=== PATIENT | female | born 1985 | race Caucasian/White ===

== ENCOUNTER 2019-07-13 23:03 | Emergency (ER) | payer BC ==
[~2019-07-13] VITALS: Ht 160 cm; Wt 109.9 kg
[2019-07-13 23:07] VITALS: Ht 160 cm; Wt 109.9 kg
[2019-07-13 23:48] LABS: UA SPECIFIC GRAVITY >=1.030 (1.005-1.035); microscopic required? YES; urine erythrocyte NEGATIVE (NEGATIVE)
[2019-07-13 23:54] LABS: BASOPHIL % 0.2 % (0-2); PLATELET COUNT 200 x10^3mcL (130-400); RED CELL DISTRIBUTION WIDTH 14.5 % (11.5-14.5)
[2019-07-14 00:05] LABS: ALBUMIN 3.6 g/dL (3.4-5.0); ALKALINE PHOSPHATASE 48 U/L (46-116); ALT/SGPT 29 U/L (14-59); AST/SGOT 16 U/L (15-37); BILIRUBIN TOTAL 0.3 mg/dL (0.20-1.00); CALCIUM 9.3 mg/dL (8.5-10.1); CARBON DIOXIDE 25.7 mmol/L (21-32); CHLORIDE SERUM 103 mmol/L (98-107); CREATININE SERUM 0.7 mg/dL (0.6-1.0); GFR1 > 60 mL/min; GLUCOSE SERUM 87 mg/dL (74-106); LIPASE 138 IU/L (73-393); POTASSIUM SERUM 3.6 mmol/L (3.5-5.1); SODIUM SERUM 141 mmol/L (136-145); TOTAL PROTEIN, SERUM 7.6 g/dL (6.4-8.2)
[2019-07-14 01:54] VITALS: BP 107/46
== END 2019-07-14 01:54 | disposition home or self-care (01) ==
LOC: ED 23:03
PROVIDERS: Emergency Medicine
DX: R10.13 Epigastric pain (principal); R11.10 Vomiting, unspecified
CPT/HCPCS: J1885; J2405; J7030

== ENCOUNTER 2019-07-29 12:50 | Inpatient (IN) | payer BC ==
[~2019-07-29] VITALS: Ht 152.4 cm; Wt 108.0 kg
[2019-07-29 12:57] VITALS: Ht 152.4 cm; Wt 108.0 kg
[2019-07-29 14:34] LABS: BASOPHIL % 0.1 % (0-2); PLATELET COUNT 237 x10^3mcL (130-400); RED CELL DISTRIBUTION WIDTH 14.3 % (11.5-14.5)
[2019-07-29 14:47] LABS: CALCIUM 8.7 mg/dL (8.5-10.1); CARBON DIOXIDE 25.2 mmol/L (21-32); CHLORIDE SERUM 105 mmol/L (98-107); CREATININE SERUM 0.5 mg/dL (0.6-1.0); GFR1 > 60 mL/min; GLUCOSE SERUM 123 mg/dL (74-106); POTASSIUM SERUM 4.1 mmol/L (3.5-5.1); SODIUM SERUM 142 mmol/L (136-145)
[2019-07-29 14:51] LABS: ALBUMIN 3.7 g/dL (3.4-5.0); ALKALINE PHOSPHATASE 47 U/L (46-116); ALT/SGPT 33 U/L (14-59); AST/SGOT 14 U/L (15-37); BILIRUBIN TOTAL 0.3 mg/dL (0.20-1.00); LIPASE 112 IU/L (73-393); TOTAL PROTEIN, SERUM 7.5 g/dL (6.4-8.2)
[2019-07-29 18:38] LABS: CHOLESTEROL/HDL RATIO 3.9; PHOSPHOROUS 2.6 mg/dL (2.5-4.9)
[2019-07-29 18:43] LABS: microscopic required? NO
[2019-07-29 18:51] LABS: FREE T4 1.15 ng/dL (0.76-1.46); FREE THYROXINE INDEX 3.1 ug/dL (1.4-4.5); T3 TOTAL 1.12 ng/mL; T4(THYROXINE) 9.2 ug/dL (4.7-13.3)
[2019-07-29 18:52] LABS: UA SPECIFIC GRAVITY 1.025 (1.005-1.035); urine erythrocyte NEGATIVE (NEGATIVE)
[2019-07-29 19:08] LABS: AMPHETAMINE QUAL UR NONE DETECTED (See below)
[2019-07-29 19:58] VITALS: BP 130/67
[2019-07-29 21:23] VITALS: BP 114/42
[2019-07-30 05:25] VITALS: BP 97/52
[2019-07-30 06:34] LABS: ALKALINE PHOSPHATASE 41 U/L (46-116); ALT/SGPT 27 U/L (14-59); AST/SGOT 13 U/L (15-37); BILIRUBIN TOTAL 0.34 mg/dL (0.20-1.00); CALCIUM 8.6 mg/dL (8.5-10.1); CARBON DIOXIDE 25.5 mmol/L (21-32); CHLORIDE SERUM 108 mmol/L (98-107); CREATININE SERUM 0.6 mg/dL (0.6-1.0); GFR1 > 60 mL/min; GLUCOSE SERUM 105 mg/dL (74-106); MAGNESIUM 2.2 mg/dL (1.8-2.4); PHOSPHOROUS 3.6 mg/dL (2.5-4.9); POTASSIUM SERUM 3.5 mmol/L (3.5-5.1); SODIUM SERUM 143 mmol/L (136-145); TOTAL PROTEIN, SERUM 6.4 g/dL (6.4-8.2)
[2019-07-30 06:37] LABS: BASOPHIL % 0.2 % (0-2); PLATELET COUNT 209 x10^3mcL (130-400)
[2019-07-30 07:04] LABS: RED CELL DISTRIBUTION WIDTH 14.6 % (11.5-14.5)
[2019-07-30 08:09] VITALS: BP 115/56
[2019-07-30 16:18] VITALS: BP 123/69
[2019-07-30 20:29] VITALS: BP 113/66
[2019-07-31 05:36] VITALS: BP 98/52
[2019-07-31 06:29] LABS: BASOPHIL % 0.3 % (0-2); PLATELET COUNT 213 x10^3mcL (130-400)
[2019-07-31 06:55] LABS: CALCIUM 8.9 mg/dL (8.5-10.1); CARBON DIOXIDE 30.4 mmol/L (21-32); CHLORIDE SERUM 107 mmol/L (98-107); CREATININE SERUM 0.6 mg/dL (0.6-1.0); GFR1 > 60 mL/min; GLUCOSE SERUM 108 mg/dL (74-106); PHOSPHOROUS 3.3 mg/dL (2.5-4.9); POTASSIUM SERUM 3.8 mmol/L (3.5-5.1); SODIUM SERUM 143 mmol/L (136-145)
[2019-07-31 07:04] LABS: RED CELL DISTRIBUTION WIDTH 14.7 % (11.5-14.5)
[2019-07-31 07:30] LABS: BILIRUBIN DIRECT 0.1 mg/dL (0.0-0.2); BILIRUBIN TOTAL 0.33 mg/dL (0.20-1.00); TOTAL PROTEIN, SERUM 6.4 g/dL (6.4-8.2)
[2019-07-31 08:59] VITALS: BP 120/62
[2019-07-31 12:12] VITALS: BP 122/70
[2019-07-31 13:43] VITALS: BP 122/70
[2019-07-31 13:44] VITALS: BP 122/70
[2019-07-31] MEDS ORDERED: NORCO1 TA2 PO (15:20)
[2019-07-31] MEDS ORDERED: ZOF4 PO ×2 (15:20→16:09)
== END 2019-07-31 16:36 | disposition home or self-care (01) | DRG 417 ==
LOC: ED 12:50 → MU 17:39
PROVIDERS: Emergency Medicine; Surgery; ADMIT Student in an Organized Health Care Education/Training Program
PROC: BF131ZZ Fluoroscopy of Gallbladder and Bile Ducts using Low Osmolar Contrast (ICD-10-PCS; 2019-07-30)
PROC: 0FT44ZZ Resection of Gallbladder, Percutaneous Endoscopic Approach (ICD-10-PCS; principal; 2019-07-30 09:00)
DX: K80.20 Calculus of gallbladder without cholecystitis without obstruction (principal); N17.0 Acute kidney failure with tubular necrosis; K76.0 Fatty (change of) liver, not elsewhere classified
CPT/HCPCS: 74181; 84439; 94150; C1887; G0378; J1170; J1885; J1956; J2001; J2250; J2270; J2405; J2543; J3010; J3490; J7030; Q0092; Q0162; Q9967